=== PATIENT | male | born 1955 | race Caucasian/White ===

== ENCOUNTER 2017-09-22 13:25 | Emergency (ER) | payer OTHER ==
[2017-09-22 13:36] VITALS: TEMP 99
[2017-09-22] MEDS ORDERED: NS 1,000 ML IV ONE (14:16)
[2017-09-22] MEDS ORDERED: HYDROmorphONE/DILAUDID 1 MG/ML INJ IVP ONE (14:16)
[2017-09-22 14:22] LABS: PLATELET COUNT 207 10^3/uL (150-400)
--- NOTE | 2017-09-22 15:03 | EDPHY ---
H & P Time Seen by Provider: 09/22/17 13:46 HPI/ROS: HPI Loose stool, left upper abdominal pain. 61-year-old male by private vehicle with his . This patient reports he has a history of diverticulitis which affects his left proximal descending colon. Last exacerbation was 2-3 years ago. He reports having crampy abdominal discomfort left upper quadrant onset last night with 1-2 episodes of loose watery stools. Pain persisted this morning. He was concerned about an exacerbation of diverticulitis so he came to the emergency department. He is now feeling much better. He has not had any vomiting. Last meal was last night. ROS: Constitutional: No fever, no chills. No weakness. Eyes: No discharge. No changes in vision. ENT: No sore throat. No nasal congestion or rhinorrhea. Respiratory: No cough. No shortness of breath. Cardiac: No chest pain, no palpitations. Gastrointestinal: As above. Genitourinary: No hematuria. No dysuria or increased frequency with urination. Musculoskeletal: No back pain. No neck pain. No myalgias or arthralgias. Skin: No rashes. Neurological: No headache. No focal weakness or altered sensation. Past medical history: Diverticulitis, hypertension. Social history: Nonsmoker. No alcohol. Here with his . Physical Exam: General Appearance: Alert, no distress. This patient is responding to questions appropriately and in full sentences. This patient appears well- hydrated and well-nourished. Eyes: Pupils equal and round no pallor or injection. No lid edema, erythema or injection. Respiratory: There are no retractions, lungs are clear to auscultation with good air movement bilaterally. Cardiovascular: Regular rate and rhythm. No murmur. Gastrointestinal: Abdomen is soft and nontender, no masses, bowel sounds normal. No focal tenderness at McBurney's point. No Johnston sign. Neurological: Motor sensory function is grossly intact. Cranial nerves are normal. Gait is normal. Skin: Warm and dry, no rashes. Musculoskeletal: Neck is supple and nontender. Extremities are symmetrical. All joints range without pain or impingement. Psychiatric: No agitation. No depression. Database: EKG: Imaging: Procedures: Emergency department course: IV placed. 1 L of IV normal saline ordered. Appropriate blood work ordered. Vital signs reviewed and are unremarkable. He is declining pain medication at this time. Declines antiemetics as well. 3:00 p.m., patient remains pain-free. Repeat abdominal exam is soft, nontender nondistended. I discussed the results of his blood work. He feels comfortable going home at this time and is requesting discharge. I feel this is reasonable. He can easily return to the emergency department should his pain return. Follow-up and return to emergency department precautions reviewed with him. All of his questions were answered. He was discharged in good condition. Differential Diagnosis: The differential diagnosis on this patient includes but is not limited to viral gastroenteritis. Diverticulitis, cholecystitis, pancreatitis, bowel obstruction , pneumonia, other serious bacterial infection unlikely. This represents a partial list of diagnoses considered. These considerations are based on history , physical exam, past history, reassessment and diagnostic testing. Smoking Status: Never smoked Constitutional: Initial Vital Signs Temperature (C) 37.2 C 09/22/17 13:34 Heart Rate 90 09/22/17 13:34 Respiratory Rate 16 09/22/17 13:34 Blood Pressure 143/82 H 09/22/17 13:34 O2 Sat (%) 92 09/22/17 13:34 O2 Delivery Mode Room Air Allergies/Adverse Reactions: brompheniramine [From Drixoral] Allergy (Verified 09/22/17 13:37) dexbrompheniramine [From Drixoral] Allergy (Verified 09/22/17 13:37) pseudoephedrine [From Drixoral] Allergy (Verified 09/22/17 13:37) Home Medications: Medication Instructions Recorded Lisinopril 09/22/17 Ondansetron Odt [Zofran Odt 4 mg 4 mg PO Q4PRN PRN #10 tab 09/22/17 (*)] Medical Decision Making - Data Points Laboratory Results: Laboratory Results 09/22/17 13:45 09/22/17 13:45 09/22/17 09/22/17 13:45 13:45 WBC 8.05 10^3/uL 10^3/uL (3.80-9.50) RBC 5.44 10^6/uL 10^6/uL (4.40-6.38) Hgb 16.8 g/dL g/dL (13.7-17.5) Hct 48.6 % % (40.0-51.0) MCV 89.3 fL fL (81.5-99.8) MCH 30.9 pg pg (27.9-34.1) MCHC 34.6 g/dL g/dL (32.4-36.7) RDW 12.8 % % (11.5-15.2) Plt Count 207 10^3/uL 10^3/uL (150-400) MPV 9.8 fL fL (8.7-11.7) Neut % (Auto) 84.5 % H % (39.3-74.2) Lymph % (Auto) 6.2 % L % (15.0-45.0) [place] % (Auto) 8.8 % % (4.5-13.0) Eos % (Auto) 0.1 % L % (0.6-7.6) Baso % (Auto) 0.2 % L % (0.3-1.7) Nucleat RBC Rel Count 0.0 % % (0.0-0.2) Absolute Neuts (auto) 6.79 10^3/uL H 10^3/uL (1.70-6.50) Absolute Lymphs (auto) 0.50 10^3/uL L 10^3/uL (1.00-3.00) Absolute Monos (auto) 0.71 10^3/uL 10^3/uL (0.30-0.80) Absolute Eos (auto) 0.01 10^3/uL L 10^3/uL (0.03-0.40) Absolute Basos (auto) 0.02 10^3/uL 10^3/uL (0.02-0.10) Absolute Nucleated RBC 0.00 10^3/uL 10^3/uL (0-0.01) Immature Gran % 0.2 % % (0.0-1.1) Immature Gran # 0.02 10^3/uL 10^3/uL (0.00-0.10) Sodium 143 mEq/L mEq/L (134-144) Potassium 3.7 mEq/L mEq/L (3.5-5.2) Chloride 104 mEq/L mEq/L (97-110) Carbon Dioxide 18 mEq/l L mEq/l (22-31) Anion Gap 21 mEq/L H mEq/L (8-16) BUN 29 mg/dL H mg/dL (7-23) Creatinine 1.0 mg/dL mg/dL (0.7-1.3) Estimated GFR > 60 Glucose 127 mg/dL H mg/dL (70-100) Calcium 9.0 mg/dL mg/dL (8.5-10.4) Total Bilirubin 1.3 mg/dL mg/dL (0.1-1.4) Conjugated Bilirubin 0.4 mg/dL mg/dL (0.0-0.5) Unconjugated Bilirubin 0.9 mg/dL mg/dL (0.0-1.1) AST 20 IU/L IU/L (17-59) ALT 42 IU/L IU/L (21-72) Alkaline Phosphatase 49 IU/L IU/L (38-126) Total Protein 6.8 g/dL g/dL (6.3-8.2) Albumin 3.9 g/dL g/dL (3.5-5.0) Lipase 57 IU/L IU/L (23-300) Departure - Departure Disposition: Home, Routine, Self-Care Clinical Impression: Abdominal pain, Diarrhea Condition: Good Instructions: Abdominal Pain (ED), Acute Diarrhea (ED) Additional Instructions: Read and follow provided instructions. Follow-up with your primary care physician on Sunday for re-evaluation as discussed. Take medication as prescribed for nausea. Return to the emergency department for return of pain and worsening pain, vomiting, fever, blood in your stool or other serious concerns. Referrals: Le Hunter MD [Primary Care Provider] - As per Instructions Prescriptions: Ondansetron Odt [Zofran Odt 4 mg (*)] 4 mg PO Q4PRN PRN #10 tab PRN Reason: For Nausea & Vomiting
[2017-09-22 16:01] VITALS: BP 136/82; PULSE 80; RESP 14; O2SAT 95
== END 2017-09-22 15:16 | disposition home or self-care (01) ==
LOC: CED 13:25
DX: R10.9 Unspecified abdominal pain (principal); R19.7 Diarrhea, unspecified; I10 Essential (primary) hypertension
CPT/HCPCS: 80048-PO; 80076-PO; 83690-PO; 85025-PO

== ENCOUNTER → 2018-09-18 | Outpatient (CLI) | payer OTHER | LOC: CIMAGING 11:37 | PROVIDERS: ATTEND Internal Medicine | DX: M50.322 Other cervical disc degeneration at C5-C6 level (principal); M47.812 Spondylosis without myelopathy or radiculopathy, cervical region; M48.02 Spinal stenosis, cervical region; M46.92 Unspecified inflammatory spondylopathy, cervical region | CPT/HCPCS: 72050-PO ==